=== PATIENT | male | born 1955 | race African-American/Black ===

== ENCOUNTER → 2017-09-02 09:45 | Outpatient (CLI) | payer MEDICARE, OTHER, SELFPAY ==
[2017-09-02 12:38] LABS: Prostate Specific Ag Screen 0.9 ng/mL (0.0-4.0)
== END ==
PROVIDERS: Visit Provider Urology
DX: Z12.5 Encounter for screening for malignant neoplasm of prostate (principal)
CPT/HCPCS: 36415; G0103

== ENCOUNTER → 2017-11-05 08:24 | Outpatient (CLI) | payer MEDICARE, OTHER, SELFPAY ==
[2017-11-05 08:43] LABS: Blood Urea Nitrogen 16 mg/dL (7-18); Creatinine,Serum 1.02 mg/dL (0.70-1.30); Estimated Glomerular Filt Rate 74 ml/min (>60); GFR (African American) 90 ML/MIN (>60)
--- NOTE | 2017-11-05 08:51 | CT_ITS ---
CT abdomen pelvis w con CLINICAL HISTORY: Abdominal pain, patient states that he has a colon mass TECHNIQUE: Axial images obtained with sagittal and coronal reformats. All CT scans at this facility use one or more dose reduction techniques, viz.: automated exposure control; ma/kV adjustment per patient size (including targeted exams where dose is matched to indication; i.e. head) or iterative reconstruction technique. COMPARISON: None PROCEDURE: Oral Contrast:Oral contrast given IV Contrast: 75 mL IV Isovue 370 was injected intravenously. FINDINGS: Lung bases: Clear, there is no pleural fluid ABDOMEN: Liver: No masses or biliary dilatation. Gallbladder: Somewhat contracted but there are no obvious stones Pancreas: Normal in size, pancreatic duct is borderline dilated but there are no inflammatory changes about the pancreas. Spleen: Unremarkable. Adrenals: Unremarkable Kidneys/ureters: No masses. No renal calculi. No hydronephrosis. No perinephric fluid collections. No ureteral dilatation or obvious ureteral calculi. Stomach bowel: The small bowel appears grossly normal. There is large amount stool mixed with oral contrast in the ascending and transverse colon. There is moderate stool in the descending and sigmoid colon. Peritoneum: No abnormal fluid collections. No obvious inflammatory changes. Lymph nodes: No enlarged lymph nodes apparent. Vasculature: No evidence of abdominal aortic aneurysm. No retroperitoneal hemorrhage evident. Bones: Unremarkable appearing bony structures. No lytic or blastic changes. No obvious fractures. PELVIS: Reproductive: Unremarkable, the prostate is mildly enlarged. Bladder: Nondistended. No obvious masses. Appendix: Unremarkable. No distention or periappendiceal phlegmonous change. IMPRESSION: No definite acute abdominal or pelvic pathology identified. No definite colon mass identified
== END ==
PROVIDERS: Family Provider Surgery; PCP Family Medicine; Visit Provider Surgery
DX: R10.9 Unspecified abdominal pain (principal)
CPT/HCPCS: 36415; 74177; 82565; 84520; Q9967

== ENCOUNTER 2017-11-10 08:30 | Inpatient (IN) ==
[2017-11-24 06:59] LABS: Basophils % 0.5 % (0.1-2.0); Eosinophils # 0.1 K/mm3 (0.0-0.4); Eosinophils % 1.3 % (0.1-12.0); Hematocrit 42.5 % (42.0-52.0); Hemoglobin 13.8 g/dL (14.1-18.0); Lymphocytes % 25.8 K/mm3 (10-50); Mean Corpuscular HGB Conc 32.5 g/dL (31.8-35.4); Mean Corpuscular Hemoglobin 28.7 pg (27.0-31.2); Mean Corpuscular Volume 88.1 fl (80-94); Mean Platelet Volume 7.3 fl (7.4-10.4); Monocytes # 0.4 K/mm3 (0.1-1.0); Monocytes % 4.8 % (1.7-9.3); Neutrophils # 5.3 K/mm3 (1.8-7.8); Neutrophils % 67.5 % (37.0-80.0); Platelet Count 219 K/mm3 (142-424); Red Blood Count 4.82 M/mm3 (4.60-6.20); Red Cell Distribution Width 14.2 % (11.5-17.5); White Blood Count 7.8 K/mm3 (4.8-10.8)
--- NOTE | 2017-11-24 07:03 | Progress Note ---
[facility] Anesthesia Checklist - Patient Identification Patient Identification: Arm Band, Verbal (Name & ) - Structural Data Admitted From: Home Planned Operative Procedure/s: R hemicolectomy Consent for Planned Operative Procedure(s) Verified: Yes Verified Documents: Surgical Consent, History and Physical - NPO Status Verified Time NPO: 23:00 - Chart Verification Results Verified: ECG - Additional verifications Anesthesia Reactions: Yes (Propofol causes weakness for days/weeks) - Airway Assessment C-Spine Mobility Assessed: Yes TMJ Mobility Assessed: Yes Dentition: Good Dentition (Micrognathia) - Neurological Assessment Level of Consciousness: Awake Hx Seizures: No Numbness or tingling in extremities: No - Anesthesia Plan Anesthesia Risk discussed: Yes Anesthesia Plan: Verified ASA Class: III Anesthesia Type: General [facility] Anesthesia HX I have reviewed the patient's past medical history: Yes Medical History: Reports:: Cancer (colon, sarcoidosis of spine, lymph nodes/lung ), Gastroesophageal Reflux Disease(GERD), Hypertension Denies:: Diabetes Mellitus Type 1, Diabetes Mellitus Type 2, Internal Pacemaker, Lung Disease, MRSA, Seizures Other Medical History: Reports: Arthritis, Chemotherapy. Denies: Blood Transfusion Reaction Laterality Cases: Right: Arthroscopy Shoulder Other Surgeries: Yes: Cancer Surgery, Colonoscopy, EGD, Plastic Surgery, Other. No: Pacemaker Amputation: No Fractures: No *Family Hx:: Cancer, Hypertension, Asthma, Heart Attack
[2017-11-24 07:11] LABS: Albumin Level 3.9 gm/dL (3.4-5.0); Albumin/Globulin Ratio 1.1 (1.1-1.8); Anion Gap 19.7 mEq/L (5-15); Bilirubin,Total 0.7 mg/dL (0.2-1.0); Calcium 8.8 mg/dL (8.5-10.1); Globulin 3.6 gm/dl (1.3-3.2); Potassium 3.7 mmoL/L (3.5-5.1); Total Protein,Serum 7.5 gm/dL (6.4-8.2)
--- NOTE | 2017-11-24 10:09 | Operative Note ---
Date of procedure: 11/24/17 Pre-op Diagnosis:: Right colon mass Post-op Diagnosis:: Same Procedure performed:: Right hemicolectomy with ileocolic anastomosis Surgeon:: Demetrio Amor MD PRESSER HAND:: Dmitri Treviño Anesthesia: GETAlis Estimated blood loss (mL): 50 Clinical Note:: Patient is a well-established patient of mine. I had done initial screening colonoscopy on him in April 2015 at which time he had numerous precancerous polyps including a tubulovillous adenoma with focal high-grade dysplasia within the cecum. I had done a follow-up colonoscopy 3 months later in July 2015 at which time he had multiple tubular adenomas. Colonoscopy 6 months later in February 2016 revealed a tubulovillous adenoma within the cecum and a tubular adenoma. Colonoscopy done in September 2016 revealed only hyperplastic polyps. It was recommended he undergo follow-up colonoscopy in 1 year. He underwent recent colonoscopy and had a tubular adenoma which was quite small within the cecum. However, in the ascending colon there was a rather large flat sessile irregular polyp which was unable to be removed with multiple techniques using snare. It was felt that this would need resection. The area was marked with a clip and with Christianne ink. Patient's only complaint is Interestingly lack of energy. Of note, large biopsies and sampling of this large flat sessile lesion in the ascending colon returned as tubular adenoma without dysplasia. When he followed up after his colonoscopy I discussed the findings with him. I had discussed the options with the patient and he elected to proceed with colon resection. Operative findings:: He had no palpable mass or no obvious metastatic disease. Christianne ink tattooing of the colon was visualized from marking during colonoscopy. Operative note:: Consent was obtained and patient was taken to the operating room. Please note that he had been given mechanical and antibiotic bowel preparation prior to surgery. He was given intravenous Invanz. In the operating room general anesthesia was induced. Fuller catheter was placed for bladder decompression. He was prepped and draped. Midline incision was made. Dissection was carried down through subcutaneous tissues and fascia using electrocautery. Peritoneal cavity was entered and exposure was achieved. Inspection of the right colon revealed clearly visualized in the aortic marking the area in the mid descending colon. The colon was mobilized by dividing the peritoneum laterally along the white line of Toldt. Colon was mobilized on its mesentery. The colon was divided at the terminal ileum with a ZAHEER-75 stapling device. Proximal transverse colon was divided with a ZAHEER-75 type stapling device. The colonic mesentery was divided with the Enseal device however the ileocolic and right colic vascular bundles were doubly ligated with 0 Surgilon ties. Decision was made to perform a couple additional centimeters resection of the transverse colon due to the location in close proximity to the staple line of the right colic vessels. Vessels were divided and ligated doubly with Surgilon ties. The colon was divided with the ZAHEER-75 stapling device. A [id number], functional end-to-end anastomosis was created with the ZAHEER-75 stapling device. The enterotomy defects were closed with a TL 90 stapling device. At this time inspection of the anastomosis revealed somewhat twisting of the ileum. It is felt that this may result in obstruction. Decision was made to perform a limited resection of the staple anastomosis and re-create the anastomosis. Colon and ileum were divided with a ZAHEER-75 stapling device. Once again a side- to-side, functional and an anastomosis was created with a ZAHEER-75 stapling device. The enterotomy was closed with TL 90 stapling device. This anastomosis was much more widely patent and in a better anatomic position without twisting. Several 3 oh Surgilon sutures were placed at the staple line angle and confluence of the staple lines as seromuscular sutures. The mesenteric defect was closed with running 2-0 Vicryl. Enteric contents were returned to the normal anatomic position. Peritoneal cavity was irrigated and aspirated until clear. Nasogastric tube was palpated and manipulated into good position in the stomach. Please note that liver was palpated and there was no evidence of any metastatic disease. The fascia was closed with running #1 PDS 2. Subcutaneous tissues were irrigated. Skin was closed with juan luis. Clean dry sterile dressing was applied. Condition: stable Disposition: PACU Specimens:: Right colon Extended distal margin Complications:: None immediately apparent
--- NOTE | 2017-11-24 10:22 | Progress Note ---
[facility] Anesthesia Record Part I Intake, IV Amount: 1,800 Estimated blood loss (mL): 20 Urine output (mL): 50 Blood Products used (#): none Blood Pressure: 186/87 SaO2: 97 Pulse Rate: 61 Respiratory Rate: 18 Temperature: 98.0 F Patient is:: Drowsy, Stable Stable to PACU at:: 10:17
--- NOTE | 2017-11-24 10:23 | Progress Note ---
[facility] Anesthesia Record Part II Discharge Time: 10:47 Destination: Medical Surgical Department PACU nurse assessment reviewed?: Yes Patient Condition:: Good Anesthesia Complications:: None
--- NOTE | 2017-11-24 11:54 | Pharmacy Consult Notes ---
[facility] Pharmacy VTE Monitoring - Patient Demographics Admission date: 11/24/17 Report Date: 11/24/17 Time: 11:54 Allergies/Adverse Reactions: Patient Allergies codeine [CODEINE] Allergy (Mild, Verified 11/12/17 10:13) NA-NAUSEA/VOMITING Sulfa (Sulfonamide Antibiotics) [SULFA (SULFONAMIDE ANTIBIOTICS)] Allergy (Mild , Verified 11/12/17 10:13) NA-NAUSEA/VOMITING duloxetine Allergy (Unknown, Verified 11/12/17 11:03) gabapentin Allergy (Unknown, Verified 11/12/17 11:03) influenza virus vaccine qs [id number] (36 mos +) [From Single Use EZ Flu] Allergy (Unknown, Verified 11/12/17 11:03) pregabalin [From Lyrica] Allergy (Unknown, Verified 11/12/17 11:03) Height: 1.75 m Weight: 66.706 kg - VTE Risk Labs: VTE Related Lab Results Hgb 13.8 g/dL (14.1-18.0) L 11/24/17 06:35 Hct 42.5 % (42.0-52.0) 11/24/17 06:35 Plt Count 219 K/mm3 (142-424) 11/24/17 06:35 BUN 19 mg/dL (7-18) H 11/24/17 06:35 Creatinine 1.13 mg/dL (0.70-1.30) 11/24/17 06:35 Estimated Creat Clear 65 mL/min (0-300) 11/24/17 06:35 - Prophylaxis VTE Prophylaxis Ordered?: Yes Types of VTE Prophylaxis: IPCS Knee High Location of Applied Device: Bilateral Lower Extremeties - VTE Diagnosis Confirmed Treatment or plan recommended: Continue Current Treatment
[2017-11-25 06:03] LABS: Anion Gap 8.7 mEq/L (5-15); Calcium 8.6 mg/dL (8.5-10.1); Potassium 3.7 mmoL/L (3.5-5.1)
[2017-11-25 06:04] LABS: Basophils % 0.2 % (0.1-2.0); Eosinophils % 0.1 % (0.1-12.0); Hematocrit 36.2 % (42.0-52.0); Lymphocytes # 2.3 K/mm3 (0.7-4.5); Lymphocytes % 18.2 K/mm3 (10-50); Mean Corpuscular HGB Conc 32.7 g/dL (31.8-35.4); Mean Corpuscular Hemoglobin 28.8 pg (27.0-31.2); Mean Corpuscular Volume 88.2 fl (80-94); Mean Platelet Volume 6.9 fl (7.4-10.4); Monocytes # 0.9 K/mm3 (0.1-1.0); Monocytes % 6.9 % (1.7-9.3); Neutrophils # 9.5 K/mm3 (1.8-7.8); Neutrophils % 74.6 % (37.0-80.0); Platelet Count 185 K/mm3 (142-424); Red Cell Distribution Width 14.1 % (11.5-17.5); White Blood Count 12.8 K/mm3 (4.8-10.8)
--- NOTE | 2017-11-25 07:03 | Progress Note ---
Subjective Patient reports: no new complaints, still having pain Exam Vital signs and Labs for Last 24 Hours: Temp Pulse Resp BP Pulse Ox 98.7 F 62 16 159/90 97 11/25/17 04:00 11/25/17 06:00 11/25/17 06:00 11/25/17 06:00 11/25/17 06:00 Laboratory Results - last 24 hr 11/24/17 06:35: WBC 7.8, RBC 4.82, Hgb 13.8 L, Hct 42.5, MCV 88.1, MCH 28.7, MCHC 32.5, RDW 14.2, Plt Count 219, MPV 7.3 L, Neut % (Auto) 67.5, Lymph % (Auto ) 25.8, [place] % (Auto) 4.8, Eos % (Auto) 1.3, Baso % (Auto) 0.5, Neut # (Auto) 5.3, Lymph # (Auto) 2.0, [place] # (Auto) 0.4, Eos # (Auto) 0.1, Baso # (Auto) 0.0 11/24/17 06:35: Sodium 142, Potassium 3.7, Chloride 99, Carbon Dioxide 27, Anion Gap 19.7 H, BUN 19 H, Creatinine 1.13, Estimated Creat Clear 65, Estimated GFR 66, Est GFR ( Amer) 80, Glucose 103, Calcium 8.8, Total Bilirubin 0.7, AST 11 L, ALT 17, Alkaline Phosphatase 57, Total Protein 7.5, Albumin 3.9, Globulin 3.6 H, Albumin/Globulin Ratio 1.1 11/24/17 07:30: Urine Color Yellow, Urine Appearance Clear, Urine pH 6.0, Ur Specific [place] >= 1.030, Urine Protein Negative, Urine Glucose (UA) Negative, Urine Ketones 1+, Urine Blood Negative, Urine Nitrate Negative, Urine Bilirubin Negative, Urine Urobilinogen 0.2, Ur Leukocyte Esterase Negative, Urine RBC None , Urine WBC Occasional, Ur Squamous Epith Cells None, Urine Bacteria 2+ A 11/25/17 05:30: WBC 12.8 H D, RBC 4.10 L, Hgb 12.0 L D, Hct 36.2 L, MCV 88.2, MCH 28.8, MCHC 32.7, RDW 14.1, Plt Count 185, MPV 6.9 L, Neut % (Auto) 74.6, Lymph % (Auto) 18.2, [place] % (Auto) 6.9, Eos % (Auto) 0.1, Baso % (Auto) 0.2, Neut # (Auto) 9.5 H, Lymph # (Auto) 2.3, [place] # (Auto) 0.9, Eos # (Auto) 0.0, Baso # (Auto) 0.0 11/25/17 05:30: Sodium 137, Potassium 3.7, Chloride 102, Carbon Dioxide 30, Anion Gap 8.7, BUN 10 D, Creatinine 0.99, Estimated Creat Clear 72, Estimated GFR 77, Est GFR ( Amer) 93, Glucose 105, Calcium 8.6 I & O for Last 24 hours: Intake & Output 11/22/17 11/23/17 11/24/17 11/25/17 11:59 11:59 11:59 11:59 Intake Total 1800 / 1800 2245 / 2245 Output Total 3150 / 3150 Balance 1800 / 1800 -905 / -905 Weight 147 lb 1 oz 148 lb 2 oz - Constitutional no acute distress - *Routine Respiratory Exam Absent: respiratory distress - *Routine Cardiovascular Exam Present: RRR - *Routine Abdominal Exam Present: soft Comments: dressing intact no cellulitis Progress Note: A&P (1) 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
[2017-11-26 06:19] LABS: Basophils % 0.3 % (0.1-2.0); Eosinophils # 0.1 K/mm3 (0.0-0.4); Eosinophils % 0.5 % (0.1-12.0); Hematocrit 34.6 % (42.0-52.0); Hemoglobin 11.4 g/dL (14.1-18.0); Lymphocytes # 1.9 K/mm3 (0.7-4.5); Lymphocytes % 16.8 K/mm3 (10-50); Mean Corpuscular Hemoglobin 28.7 pg (27.0-31.2); Mean Corpuscular Volume 86.9 fl (80-94); Mean Platelet Volume 7.2 fl (7.4-10.4); Monocytes # 0.7 K/mm3 (0.1-1.0); Monocytes % 5.7 % (1.7-9.3); Neutrophils # 8.7 K/mm3 (1.8-7.8); Neutrophils % 76.8 % (37.0-80.0); Platelet Count 185 K/mm3 (142-424); Red Blood Count 3.98 M/mm3 (4.60-6.20); Red Cell Distribution Width 13.9 % (11.5-17.5); White Blood Count 11.4 K/mm3 (4.8-10.8)
[2017-11-26 06:33] LABS: Anion Gap 8.7 mEq/L (5-15); Calcium 8.7 mg/dL (8.5-10.1); Potassium 3.7 mmoL/L (3.5-5.1)
--- NOTE | 2017-11-26 07:46 | Progress Note ---
Subjective Patient reports: feels better Narrative: Patient has been ambulating multiple times. He has had some nausea. NG tube still in place. No flatus. He did require increasing the [employer] yesterday due to pain. Exam Vital signs and Labs for Last 24 Hours: Temp Pulse Resp BP Pulse Ox 98.0 F 75 18 155/83 98 11/25/17 20:00 11/26/17 06:00 11/25/17 20:00 11/26/17 06:00 11/26/17 06:00 Laboratory Results - last 24 hr 11/26/17 05:40: WBC 11.4 H, RBC 3.98 L, Hgb 11.4 L, Hct 34.6 L, MCV 86.9, MCH 28.7, MCHC 33.0, RDW 13.9, Plt Count 185, MPV 7.2 L, Neut % (Auto) 76.8, Lymph % (Auto) 16.8, [place] % (Auto) 5.7, Eos % (Auto) 0.5, Baso % (Auto) 0.3, Neut # ( Auto) 8.7 H, Lymph # (Auto) 1.9, [place] # (Auto) 0.7, Eos # (Auto) 0.1, Baso # ( Auto) 0.0 11/26/17 05:40: Sodium 138, Potassium 3.7, Chloride 101, Carbon Dioxide 32, Anion Gap 8.7, BUN 10, Creatinine 0.93, Estimated Creat Clear 75, Estimated GFR 82, Est GFR ( Amer) 100, Glucose 95, Calcium 8.7 I & O for Last 24 hours: Intake & Output 11/23/17 11/24/17 11/25/17 11/26/17 11:59 11:59 11:59 11:59 Intake Total 1800 / 1800 2245 / 2245 3220 / 3220 Output Total 3750 / 3750 1462 / 1462 Balance 1800 / 1800 -1505 / -1505 1758 / 1758 Weight 147 lb 1 oz 148 lb 2 oz 153 lb Microbiology Reports for the Last 24 Hours: Microbiology 11/24/17 07:30 Urine,Catheterized Urine Culture - Preliminary NO GROWTH AFTER 24 HOURS - *Routine Abdominal Exam Present: soft Comments: No appreciable bowel sounds. 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 Encourage ambulation.
--- NOTE | 2017-11-27 09:07 | Progress Note ---
Subjective Patient reports: no new complaints Narrative: Patient is doing quite well. Has been ambulating extensively in the hallways. Has had limited nausea but no vomiting. Has had some belching. Denies passage of flatus. Exam Vital signs and Labs for Last 24 Hours: Temp Pulse Resp BP Pulse Ox 98.5 F 73 20 169/90 99 11/27/17 08:00 11/27/17 08:00 11/27/17 08:00 11/27/17 08:00 11/27/17 08:00 I & O for Last 24 hours: Intake & Output 11/24/17 11/25/17 11/26/17 11/27/17 11:59 11:59 11:59 11:59 Intake Total 1800 / 1800 2245 / 2245 3220 / 3220 1431 / 1431 Output Total 3750 / 3750 1462 / 1462 1525 / 1525 Balance 1800 / 1800 -1505 / -1505 1758 / 1758 -94 / -94 Weight 147 lb 1 oz 148 lb 2 oz 153 lb 153 lb 0.013 oz Microbiology Reports for the Last 24 Hours: Microbiology 11/24/17 07:30 Urine,Catheterized Urine Culture - Final NO GROWTH AFTER 48 HOURS - *Routine Abdominal Exam Comments: Dressing is dry. Abdomen is soft. No appreciable bowel sounds. 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 Once he has passage of flatus and return of bowel function will initiate diet.
--- NOTE | 2017-11-28 09:40 | Progress Note ---
Subjective Narrative: Patient is postoperative day #4 from right hemicolectomy. When asked how the patient is doing he states "I am not." He describes significant abdominal bloating and "gas pain" since awakening this morning approximately 6 AM. He states that he did pass some gas. Exam Vital signs and Labs for Last 24 Hours: Temp Pulse Resp BP Pulse Ox 98.4 F 77 20 165/107 96 11/28/17 07:51 11/28/17 08:00 11/28/17 07:51 11/28/17 07:51 11/28/17 08:00 I & O for Last 24 hours: Intake & Output 11/25/17 11/26/17 11/27/17 11/28/17 11:59 11:59 11:59 11:59 Intake Total 2245 / 2245 3220 / 3220 1431 / 1431 4713 / 4713 Output Total 3750 / 3750 1462 / 1462 1525 / 1525 1775 / 1775 Balance -1505 / -1505 1758 / 1758 -94 / -94 2938 / 2938 Weight 148 lb 2 oz 153 lb 153 lb 0.013 oz - Constitutional Comments: Patient is uncomfortable. - *Routine Abdominal Exam Present: distended Comments: No appreciable bowel sounds. 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 I will give simethicone. Check an acute abdominal series to check bowel gas pattern. Likely will need nasogastric tube replaced.
[2017-11-28 10:23] LABS: Basophils % 0.2 % (0.1-2.0); Eosinophils # 0.2 K/mm3 (0.0-0.4); Eosinophils % 1.5 % (0.1-12.0); Hematocrit 40.4 % (42.0-52.0); Hemoglobin 13.6 g/dL (14.1-18.0); Lymphocytes # 1.3 K/mm3 (0.7-4.5); Lymphocytes % 9.7 K/mm3 (10-50); Mean Corpuscular HGB Conc 33.7 g/dL (31.8-35.4); Mean Corpuscular Hemoglobin 29.1 pg (27.0-31.2); Mean Corpuscular Volume 86.5 fl (80-94); Mean Platelet Volume 7.3 fl (7.4-10.4); Monocytes # 0.6 K/mm3 (0.1-1.0); Monocytes % 4.7 % (1.7-9.3); Neutrophils # 11.2 K/mm3 (1.8-7.8); Neutrophils % 83.9 % (37.0-80.0); Platelet Count 282 K/mm3 (142-424); Red Blood Count 4.67 M/mm3 (4.60-6.20); Red Cell Distribution Width 13.7 % (11.5-17.5); White Blood Count 13.3 K/mm3 (4.8-10.8)
[2017-11-28 10:34] LABS: Anion Gap 13.5 mEq/L (5-15); Calcium 9.2 mg/dL (8.5-10.1); Potassium 3.5 mmoL/L (3.5-5.1)
[2017-11-29 06:21] LABS: Basophils % 0.4 % (0.1-2.0); Eosinophils # 0.2 K/mm3 (0.0-0.4); Eosinophils % 2.6 % (0.1-12.0); Hematocrit 36.4 % (42.0-52.0); Lymphocytes # 1.5 K/mm3 (0.7-4.5); Lymphocytes % 17.7 K/mm3 (10-50); Mean Corpuscular HGB Conc 32.8 g/dL (31.8-35.4); Mean Corpuscular Hemoglobin 28.7 pg (27.0-31.2); Mean Corpuscular Volume 87.8 fl (80-94); Mean Platelet Volume 7.2 fl (7.4-10.4); Monocytes # 0.6 K/mm3 (0.1-1.0); Monocytes % 6.3 % (1.7-9.3); Neutrophils # 6.3 K/mm3 (1.8-7.8); Neutrophils % 72.9 % (37.0-80.0); Platelet Count 256 K/mm3 (142-424); Red Blood Count 4.15 M/mm3 (4.60-6.20); Red Cell Distribution Width 13.8 % (11.5-17.5); White Blood Count 8.7 K/mm3 (4.8-10.8)
[2017-11-29 06:28] LABS: Anion Gap 9.8 mEq/L (5-15); Calcium 8.6 mg/dL (8.5-10.1); Potassium 3.8 mmoL/L (3.5-5.1)
--- NOTE | 2017-11-29 08:14 | Progress Note ---
Subjective Patient reports: feels better Narrative: Patient feels much better than yesterday. Some relief with nasogastric tube placement. He had a total of 900 mL out. He actually has had some liquid stool. X-rays were consistent with diffuse ileus. Exam Vital signs and Labs for Last 24 Hours: Temp Pulse Resp BP Pulse Ox 98.1 F 68 16 148/86 96 11/29/17 07:43 11/29/17 07:43 11/29/17 07:43 11/29/17 07:43 11/29/17 07:43 Laboratory Results - last 24 hr 11/28/17 10:14: WBC 13.3 H, RBC 4.67, Hgb 13.6 L, Hct 40.4 L, MCV 86.5, MCH 29.1 , MCHC 33.7, RDW 13.7, Plt Count 282 D, MPV 7.3 L, Neut % (Auto) 83.9 H, Lymph % (Auto) 9.7 L, [place] % (Auto) 4.7, Eos % (Auto) 1.5, Baso % (Auto) 0.2, Neut # ( Auto) 11.2 H, Lymph # (Auto) 1.3, [place] # (Auto) 0.6, Eos # (Auto) 0.2, Baso # ( Auto) 0.0 11/28/17 10:14: Sodium 136, Potassium 3.5, Chloride 97 L, Carbon Dioxide 29, Anion Gap 13.5, BUN 15 D, Creatinine 1.01, Estimated Creat Clear 74, Estimated GFR 75, Est GFR ( Amer) 91, Glucose 128 H, Calcium 9.2 11/29/17 05:54: WBC 8.7 D, RBC 4.15 L, Hct 36.4 L, MCV 87.8, MCH 28.7, MCHC 32.8, RDW 13.8, Plt Count 256, MPV 7.2 L, Neut % (Auto) 72.9, Lymph % (Auto) 17.7, [place] % (Auto) 6.3, Eos % (Auto) 2.6, Baso % (Auto) 0.4, Neut # (Auto) 6.3 , Lymph # (Auto) 1.5, [place] # (Auto) 0.6, Eos # (Auto) 0.2, Baso # (Auto) 0.0 11/29/17 05:54: Sodium 139, Potassium 3.8, Chloride 102, Carbon Dioxide 31, Anion Gap 9.8, BUN 23 H D, Creatinine 1.18, Estimated Creat Clear 64, Estimated GFR 63, Est GFR ( Amer) 76, Glucose 106, Calcium 8.6 I & O for Last 24 hours: Intake & Output 11/26/17 11/27/17 11/28/17 11/29/17 11:59 11:59 11:59 11:59 Intake Total 3220 / 3220 1431 / 1431 4713 / 4713 2898 / 2898 Output Total 1462 / 1462 1525 / 1525 1775 / 1775 900 / 900 Balance 1758 / 1758 -94 / -94 2938 / 2938 1997 / 1997 Weight 153 lb 153 lb 0.013 oz - *Routine Abdominal Exam Present: soft Progress Note: A&P (1) 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 If continues to pass liquid stool may be able to remove tomorrow and initiate liquid diet.
[2017-11-29 15:23] LABS: Hemoglobin 11.9 g/dL (14.1-18.0)
--- NOTE | 2017-11-30 06:46 | Progress Note ---
Subjective Narrative: Pt sleeping. Couple of loose bowel movements yesterday. Only 150 out NG over last 24 hours. Exam Vital signs and Labs for Last 24 Hours: Temp Pulse Resp BP Pulse Ox 99.5 F 74 18 149/86 98 11/30/17 06:00 11/30/17 06:00 11/30/17 06:00 11/30/17 06:00 11/30/17 06:00 Laboratory Results - last 24 hr 11/29/17 05:54: Hgb 11.9 L D 11/29/17 17:45: Stool Occult Blood Negative 11/29/17 17:45: Stl Aeromonas (PCR) Not detected, Stl C. cayetanensis PCR Not detected, Stool Rotavirus (PCR) Not detected, Stl Adenov F 40/41 PCR Not detected, Stool Astrovirus (PCR) Not detected, Stool Campylobacter PCR Not detected, Stl C.difficile Tox PCR Not detected, Stool Cryptosporidium PCR Not detected, Stl E.coli Shiga Tox PCR Not detected, Stool E coli O157 PCR Not detected, Stl Enterotoxigenic E PCR Not detected, Stool EPEC (PCR) Detected A, Stool EAEC (PCR) Not detected, Stl E. histolytica PCR Not detected, Stool Giardia Lamblia PCR Not detected, Stool Salmonella PCR Not detected, Stool Sapovirus (PCR) Not detected, Stl P. 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 If improving bowel gas pattern may be able to DC NG tube.
--- NOTE | 2017-11-30 12:28 | Progress Note ---
Subjective Patient reports: no new complaints, flatus, diarrhea Exam Vital signs and Labs for Last 24 Hours: Temp Pulse Resp BP Pulse Ox 98.0 F 68 16 162/90 98 11/30/17 10:00 11/30/17 10:00 11/30/17 10:00 11/30/17 10:00 11/30/17 10:00 Laboratory Results - last 24 hr 11/29/17 05:54: Hgb 11.9 L D 11/29/17 17:45: Stool Occult Blood Negative 11/29/17 17:45: Stl Aeromonas (PCR) Not detected, Stl C. cayetanensis PCR Not detected, Stool Rotavirus (PCR) Not detected, Stl Adenov F 40/41 PCR Not detected, Stool Astrovirus (PCR) Not detected, Stool Campylobacter PCR Not detected, Stl C.difficile Tox PCR Not detected, Stool Cryptosporidium PCR Not detected, Stl E.coli Shiga Tox PCR Not detected, Stool E coli O157 PCR Not detected, Stl Enterotoxigenic E PCR Not detected, Stool EPEC (PCR) Detected A, Stool EAEC (PCR) Not detected, Stl E. histolytica PCR Not detected, Stool Giardia Lamblia PCR Not detected, Stool Salmonella PCR Not detected, Stool Sapovirus (PCR) Not detected, Stl P. 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 Apparently according to protocol he had a diarrhea stool PCR panel sent which revealed enteropathogenic E. coli. He has had minimal out the NG tube today. However, acute abdominal series reveals significant persistent small bowel gas dilatation with some air-fluid levels. At this point we will keep the nasogastric tube for presumed ileus. The findings on the PCR panel may be incidental and his liquid stools are likely due to resolving ileus but will start levofloxacin and metronidazole given the results.
[2017-12-01 06:36] LABS: Anion Gap 10.5 mEq/L (5-15); Calcium 8.2 mg/dL (8.5-10.1); Potassium 3.5 mmoL/L (3.5-5.1)
[2017-12-01 06:43] LABS: Basophils % 0.3 % (0.1-2.0); Eosinophils # 0.1 K/mm3 (0.0-0.4); Eosinophils % 1.6 % (0.1-12.0); Hematocrit 30.1 % (42.0-52.0); Hemoglobin 9.8 g/dL (14.1-18.0); Lymphocytes # 1.5 K/mm3 (0.7-4.5); Lymphocytes % 18.3 K/mm3 (10-50); Mean Corpuscular HGB Conc 32.6 g/dL (31.8-35.4); Mean Corpuscular Hemoglobin 28.7 pg (27.0-31.2); Mean Corpuscular Volume 87.9 fl (80-94); Mean Platelet Volume 7.3 fl (7.4-10.4); Monocytes # 0.6 K/mm3 (0.1-1.0); Monocytes % 6.5 % (1.7-9.3); Neutrophils # 6.2 K/mm3 (1.8-7.8); Neutrophils % 73.2 % (37.0-80.0); Platelet Count 259 K/mm3 (142-424); Red Blood Count 3.42 M/mm3 (4.60-6.20); Red Cell Distribution Width 13.9 % (11.5-17.5); White Blood Count 8.4 K/mm3 (4.8-10.8)
--- NOTE | 2017-12-01 06:48 | Progress Note ---
Subjective Patient reports: feels better Narrative: Patient states that he feels good this morning. Exam Vital signs and Labs for Last 24 Hours: Temp Pulse Resp BP Pulse Ox 98.4 F 73 18 161/83 98 12/01/17 04:00 12/01/17 04:00 12/01/17 04:00 12/01/17 04:00 12/01/17 04:00 Laboratory Results - last 24 hr 12/01/17 06:13: Sodium 137, Potassium 3.5, Chloride 101, Carbon Dioxide 29, Anion Gap 10.5, BUN 18, Creatinine 0.97, Estimated Creat Clear 75, Estimated GFR 78, Est GFR ( Amer) 95 D, Glucose 94, Calcium 8.2 L I & O for Last 24 hours: Intake & Output 11/28/17 11/29/17 11/30/17 12/01/17 11:59 11:59 11:59 11:59 Intake Total 4713 / 4713 2898 / 2898 3190 / 3190 2307 / 2307 Output Total 1775 / 1775 900 / 900 650 / 650 1575 / 1575 Balance 2938 / 2938 1997 / 1997 2540 / 2540 732 / 732 - *Routine Abdominal Exam Present: soft Progress Note: A&P (1) 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 If improving will clamp NG and if tolerated remove NG later.
--- NOTE | 2017-12-02 08:52 | Progress Note ---
Subjective Patient reports: no new complaints Narrative: Still passing flatus and having bowel movements. 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 When reattached to suction no output. Will DC NG tube. Start clears.
[2017-12-03 07:24] LABS: Basophils % 0.4 % (0.1-2.0); Eosinophils # 0.2 K/mm3 (0.0-0.4); Eosinophils % 2.6 % (0.1-12.0); Hematocrit 31.2 % (42.0-52.0); Hemoglobin 10.4 g/dL (14.1-18.0); Lymphocytes # 1.8 K/mm3 (0.7-4.5); Lymphocytes % 20.8 K/mm3 (10-50); Mean Corpuscular HGB Conc 33.5 g/dL (31.8-35.4); Mean Corpuscular Hemoglobin 28.9 pg (27.0-31.2); Mean Corpuscular Volume 86.4 fl (80-94); Mean Platelet Volume 7.3 fl (7.4-10.4); Monocytes # 0.5 K/mm3 (0.1-1.0); Monocytes % 6.3 % (1.7-9.3); Neutrophils # 5.9 K/mm3 (1.8-7.8); Neutrophils % 69.9 % (37.0-80.0); Platelet Count 342 K/mm3 (142-424); Red Blood Count 3.61 M/mm3 (4.60-6.20); Red Cell Distribution Width 13.9 % (11.5-17.5); White Blood Count 8.4 K/mm3 (4.8-10.8)
--- NOTE | 2017-12-03 08:01 | Progress Note ---
Subjective Patient reports: feels better, flatus, bowel movement Narrative: Tolerating copious amounts of liquids. Exam Vital signs and Labs for Last 24 Hours: Temp Pulse Resp BP Pulse Ox 98.1 F 65 18 139/77 100 12/03/17 04:00 12/03/17 04:00 12/03/17 04:00 12/03/17 04:00 12/03/17 04:00 Laboratory Results - last 24 hr 12/03/17 06:18: WBC 8.4, RBC 3.61 L, Hgb 10.4 L, Hct 31.2 L, MCV 86.4, MCH 28.9 , MCHC 33.5, RDW 13.9, Plt Count 342 D, MPV 7.3 L, Neut % (Auto) 69.9, Lymph % (Auto) 20.8, [place] % (Auto) 6.3, Eos % (Auto) 2.6, Baso % (Auto) 0.4, Neut # ( Auto) 5.9, Lymph # (Auto) 1.8, Clinch # (Auto) 0.5, Eos # (Auto) 0.2, Baso # (Auto ) 0.0 I & O for Last 24 hours: Intake & Output 11/30/17 12/01/17 12/02/17 12/03/17 11:59 11:59 11:59 11:59 Intake Total 3190 / 3190 2507 / 2507 3491 / 3491 1821 / 1821 Output Total 650 / 650 1775 / 1775 1710 / 1710 600 / 600 Balance 2540 / 2540 732 / 732 1781 / 1781 1221 / 1221 Progress Note: A&P (1) 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 Possible discharge home later today.
[2017-12-03 08:12] LABS: Anion Gap 11.2 mEq/L (5-15); Calcium 8.2 mg/dL (8.5-10.1); Potassium 3.2 mmoL/L (3.5-5.1)
--- NOTE | 2017-12-03 09:54 | Progress Note ---
Internal Medicine - PN: Subj *Date: 12/03/17 *Time: 09:54 Exam Vital signs and Labs for Last 24 Hours: Temp Pulse Resp BP Pulse Ox 98.2 F 61 18 152/75 99 12/03/17 08:00 12/03/17 08:00 12/03/17 08:00 12/03/17 08:00 12/03/17 08:00 Laboratory Results - last 24 hr 12/03/17 06:18: WBC 8.4, RBC 3.61 L, Hgb 10.4 L, Hct 31.2 L, MCV 86.4, MCH 28.9 , MCHC 33.5, RDW 13.9, Plt Count 342 D, MPV 7.3 L, Neut % (Auto) 69.9, Lymph % (Auto) 20.8, [place] % (Auto) 6.3, Eos % (Auto) 2.6, Baso % (Auto) 0.4, Neut # ( Auto) 5.9, Lymph # (Auto) 1.8, [place] # (Auto) 0.5, Eos # (Auto) 0.2, Baso # (Auto ) 0.0 12/03/17 06:18: Sodium 136, Potassium 3.2 L, Chloride 100, Carbon Dioxide 28, Anion Gap 11.2, BUN 8 D, Creatinine 0.99, Estimated Creat Clear 75, Estimated GFR 77, Est GFR ( Amer) 93, Glucose 126 H, Calcium 8.2 L I & O for Last 24 hours: Intake & Output 11/30/17 12/01/17 12/02/17 12/03/17 23:59 23:59 23:59 23:59 Intake Total 3053 / 3053 1287 / 1287 3871 / 3871 1621 / 1621 Output Total 1725 / 1725 1400 / 1400 1310 / 1310 Balance 1328 / 1328 -113 / -113 2561 / 2561 1621 / 1621 Assessment and Plan (1) 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
--- NOTE | 2017-12-03 12:01 | Progress Note ---
Subjective Patient reports: feels better Narrative: Tolerating full liquids. Exam Vital signs and Labs for Last 24 Hours: Temp Pulse Resp BP Pulse Ox 98.2 F 61 18 152/75 99 12/03/17 08:00 12/03/17 08:00 12/03/17 08:00 12/03/17 08:00 12/03/17 08:00 Laboratory Results - last 24 hr 12/03/17 06:18: WBC 8.4, RBC 3.61 L, Hgb 10.4 L, Hct 31.2 L, MCV 86.4, MCH 28.9 , MCHC 33.5, RDW 13.9, Plt Count 342 D, MPV 7.3 L, Neut % (Auto) 69.9, Lymph % (Auto) 20.8, [place] % (Auto) 6.3, Eos % (Auto) 2.6, Baso % (Auto) 0.4, Neut # ( Auto) 5.9, Lymph # (Auto) 1.8, [place] # (Auto) 0.5, Eos # (Auto) 0.2, Baso # (Auto ) 0.0 12/03/17 06:18: Sodium 136, Potassium 3.2 L, Chloride 100, Carbon Dioxide 28, Anion Gap 11.2, BUN 8 D, Creatinine 0.99, Estimated Creat Clear 75, Estimated GFR 77, Est GFR ( Amer) 93, Glucose 126 H, Calcium 8.2 L I & O for Last 24 hours: Intake & Output 11/30/17 12/01/17 12/02/17 12/03/17 11:59 11:59 11:59 11:59 Intake Total 3190 / 3190 2507 / 2507 3491 / 3491 2301 / 2301 Output Total 650 / 650 1775 / 1775 1710 / 1710 600 / 600 Balance 2540 / 2540 732 / 732 1781 / 1781 1701 / 1701 - *Routine Abdominal Exam Present: soft Progress Note: A&P (1) 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 Probable discharge tomorrow morning.
[2017-12-04 08:17] VITALS: BP 140/77
== END 2017-12-04 12:05 | disposition home or self-care (01) ==
LOC: 2ND 11-24 06:07 → EDSTATUS 11-24 07:30 → 2ND 11-24 11:12
PROVIDERS: ADMIT Surgery; ATTEND Surgery

== ENCOUNTER → 2018-09-22 11:45 | Outpatient (CLI) | payer MEDICARE, OTHER, SELFPAY ==
[2018-09-22 13:37] LABS: Prostate Specific Ag Screen 0.7 ng/mL (0.0-4.0)
== END ==
PROVIDERS: Visit Provider Urology
DX: Z12.5 Encounter for screening for malignant neoplasm of prostate (principal)
CPT/HCPCS: 36415; G0103

== ENCOUNTER → 2019-12-04 14:05 | Outpatient (CLI) | payer MEDICARE, OTHER, SELFPAY ==
[2019-12-04 15:51] LABS: Prostate Specific Ag Screen 0.9 ng/ml (0.0-4.0)
== END ==
PROVIDERS: Visit Provider Urology
DX: Z12.5 Encounter for screening for malignant neoplasm of prostate (principal)
CPT/HCPCS: 36415; G0103

== ENCOUNTER → 2020-01-29 09:49 | Outpatient (CLI) | payer MEDICARE, OTHER, SELFPAY ==
[2020-01-29 12:09] LABS: Coronavirus 19 IgG Antibody Negative (Negative); Coronavirus 19 IgM Antibody Negative (Negative)
== END ==
PROVIDERS: Visit Provider Surgery
DX: Z01.818 Encounter for other preprocedural examination (principal); Z12.11 Encounter for screening for malignant neoplasm of colon
CPT/HCPCS: 36415; 86328

== ENCOUNTER 2020-01-30 07:24 | Day surgery (SDC) | payer MEDICARE, OTHER, SELFPAY ==
[2020-01-24 15:53] VITALS: BMI 22.6
[2020-01-30 07:46] VITALS: BP 157/90; PULSE 57; RESP 18; TEMP 36.3; O2SAT 98
--- NOTE | 2020-01-30 07:52 | P.PN_ITS ---
[facility] Anesthesia Checklist - Patient Identification Patient Identification: Arm Band, Verbal (Name & ) - Structural Data Admitted From: Home Planned Operative Procedure/s: colon Consent for Planned Operative Procedure(s) Verified: Yes Verified Documents: History and Physical - NPO Status Verified Time NPO: 00:00 - Additional verifications Patient : No Anesthesia Reactions: No Hx Blood Transfusions: Yes Blood Transfusion Reaction: No Cephalosporin Allergy: No Previous Colonoscopy: Yes - Cardiovascular Assessment Heart Sounds: S1 & S2 Pulse Strength: Baseline Pulse Rhythm: Regular - Airway Assessment C-Spine Mobility Assessed: Yes TMJ Mobility Assessed: Yes Dentition: Edentulous - Neurological Assessment Level of Consciousness: Awake, Alert, Appropriate Hx Seizures: No Numbness or tingling in extremities: No - Anesthesia Plan Anesthesia Risk discussed: Yes Anesthesia Plan: Verified ASA Class: III Anesthesia Type: MAC [facility] History I have reviewed the patient's past medical history: Yes Medical History: Reports:: Cancer (colon, skin ca), Gastroesophageal Reflux Disease(GERD), Hypertension Denies:: Diabetes Mellitus Type 1, Diabetes Mellitus Type 2, Internal Pacemaker, Lung Disease, MRSA, Seizures *Have you ever received a pneumonia vaccine?: Yes *Have you received a flu vaccine this season?: No Other Medical History: Reports: Arthritis, Chemotherapy. Denies: Blood Transfusion Reaction Anesthesia experience/problems:: none Laterality Cases: Right: Arthroscopy Shoulder Other Surgeries: Yes: Cancer Surgery, Colonoscopy, Colon Resection, EGD, Plastic Surgery, Other. No: Pacemaker Amputation: No Fractures: Yes - *Social History Last grade of school completed: Some college Smoking Status: Current every day smoker Tobacco Type: cigars # Packs/Day (cigarettes): 1 #Yrs smoked (if former smoker): 18 Alcohol Intake: current Alcohol Intake Frequency:: holidays/special occasions only Substance Use Type: denies use *Occupational Status:: disabled Housing: house Household Members: family *Travel in the last 8 weeks: None Family Hx:: Cancer, Coronary Artery Disease, Diabetes, Heart Attack, Hyperlipidemia, Hypertension, Stroke, Thyroid Disorder
[2020-01-30 08:11] VITALS: O2SAT 98
--- NOTE | 2020-01-30 08:41 | HMH.SCOPE ---
- Procedure: Date: 01/30/20 Patient Date of :: 1955 Procedure Performed:: Total colonoscopy with biopsy and polypectomy by biopsy forceps Indications:: Patient is a pleasant 64-year-old male who is well known to me. He has a history of numerous colon polyps. I had performed initial colonoscopy on him in April 2015 at which time he had numerous adenomatous polyps as well as a tubulovillous adenoma with high-grade dysplasia. Due to this he underwent follow-up colonoscopy 3 months later and had numerous tubular adenomas. Later that year in February 2016 colonoscopy revealed tubulovillous adenoma and tubular adenoma. Colonoscopy September 2016 revealed no adenomatous polyps. And therefore he underwent colonoscopy 1 year later in September 2017 at which he was found to have an interval development of adenomatous mass in the cecum. He underwent right hemicolectomy. He did have a 1 year colonoscopy which revealed no adenomatous polyps. Of note, his sister of colon cancer at age 56. Of note, the patient did undergo extensive lower extremity vascular surgery by Dr. Matias Diaz. He is on Plavix. Performing Provider:: Demetrio Amor MD Referring Provider:: Salma Herr Sedation:: MAC sedation Procedure:: Patient was taken to endoscopy procedure room. He was positioned in a lateral decubitus position. Adequate intravenous sedation was achieved with anesthesia titration of propofol. Variable stiffness Olympus colonoscope was inserted via the anus. It was advanced to the ileocolonic anastomosis at approximately 80 cm from the anal verge. Colonoscope was advanced into the ileum. There was some mucosal nodularity consistent with lymphoid hyperplasia. There were a couple of areas of more prominent mucosa in the ileum and biopsies were obtained using cold biopsy forceps. Colonoscope was withdrawn through the colon with careful surveillance. There is a tiny diminutive possible polyp in the transverse colon removed with cold biopsy forceps. There was rectosigmoid likely hyperplastic polyp removed with cold biopsy forceps. Retroflexion within the rectum revealed no evidence of any pathologic internal hemorrhoids. Colonoscope was withdrawn. Findings:: Possible polyps Prominent mucosa in the ileum Recommendations:: Given patient's prior history and family history repeat colonoscopy 1 or 2 years. Complications:: None immediately apparent Estimated blood obtained (mL): 2
[2020-01-30 08:45] VITALS: BP 81/47; PULSE 59; RESP 18; TEMP 36.3; O2SAT 96
[2020-01-30 08:55] VITALS: BP 136/84; PULSE 49; RESP 18; O2SAT 98
[2020-01-30 09:05] VITALS: BP 132/86; PULSE 52; RESP 18; O2SAT 97
[2020-01-30 09:15] VITALS: BP 128/84; PULSE 56; RESP 18; O2SAT 98
== END 2020-01-30 09:15 | disposition home or self-care (01) ==
PROVIDERS: PCP Family Medicine; Visit Provider Surgery
PROC: 0DJD8ZZ Inspection of Lower Intestinal Tract, Via Natural or Artificial Opening Endoscopic (ICD-10-PCS; principal; 2020-01-30 08:30)
DX: Z12.11 Encounter for screening for malignant neoplasm of colon (principal); K63.89 Other specified diseases of intestine; R59.0 Localized enlarged lymph nodes; Z86.010 Personal history of colon polyps; Z87.19 Personal history of other diseases of the digestive system; Z80.0 Family history of malignant neoplasm of digestive organs; Z90.49 Acquired absence of other specified parts of digestive tract
CPT/HCPCS: 45380; 88305

== ENCOUNTER → 2020-12-31 11:08 | Outpatient (CLI) | payer MEDICARE, SELFPAY ==
[2020-12-31 16:57] LABS: Prostate Specific Ag Screen 0.8 ng/ml (0.0-4.0)
== END ==
PROVIDERS: Visit Provider Urology
DX: Z12.5 Encounter for screening for malignant neoplasm of prostate (principal)
CPT/HCPCS: 36415; G0103

== ENCOUNTER → 2021-08-27 15:06 | Outpatient (CLI) | payer MEDICARE, SELFPAY | PROVIDERS: Visit Provider Surgery | DX: Z01.812 Encounter for preprocedural laboratory examination (principal); Z11.52 Encounter for screening for COVID-19; Z12.11 Encounter for screening for malignant neoplasm of colon | CPT/HCPCS: C9803; U0003; U0005 ==

== ENCOUNTER 2021-08-29 06:20 | Day surgery (SDC) | payer MEDICARE, SELFPAY ==
[2021-08-27 13:36] VITALS: BMI 25.1
[2021-08-29] VITALS (7 sets, daily range): BP systolic 86–147; BP diastolic 55–93; PULSE 50–65; RESP 16–20; TEMP 36.2–36.4; O2SAT 96–99
--- NOTE | 2021-08-29 06:26 | HMH.GSHP ---
HPI HPI: Patient is a pleasant 66-year-old male who is well known to me. He has a history of numerous colon polyps. I had performed initial colonoscopy on him in April 2015 at which time he had numerous adenomatous polyps as well as a tubulovillous adenoma with high-grade dysplasia. Due to this he underwent follow-up colonoscopy 3 months later and had numerous tubular adenomas. Later that year in February 2016 colonoscopy revealed tubulovillous adenoma and tubular adenoma. Colonoscopy September 2016 revealed no adenomatous polyps. And therefore he underwent colonoscopy 1 year later in September 2017 at which he was found to have an interval development of adenomatous mass in the cecum. He underwent right hemicolectomy. He did have a 1 year colonoscopy last year which revealed no polyps. Last colonoscopy performed on 01/30/20 to the ileum proximal to the anastomosis was essentially unremarkable other than a couple of hyperplastic polyps. There were no adenomatous polyps. Since his right hemicolectomy, he had not had any adenomatous polyps. However, given his prior history I would advocated repeating colonoscopy about 18 months after last. Patient states that for about 8 months he has had some discomfort in the epigastrium to the left subcostal area. This is intermittent. His primary care provider had ordered a CT scan which was reportedly unremarkable. [facility] History I have reviewed the patient's past medical history: Yes Medical History: Reports:: Cancer (skin), Gastroesophageal Reflux Disease(GERD), Hypertension Denies:: Diabetes Mellitus Type 1, Diabetes Mellitus Type 2, Internal Pacemaker, Lung Disease, MRSA, Seizures *Have you ever received a pneumonia vaccine?: No *Have you received a flu vaccine this season?: No Other Medical History: Reports: Arthritis, Chemotherapy. Denies: Blood Transfusion Reaction Laterality Cases: Right: Arthroscopy Shoulder Other Surgeries: Yes: No Previous Surgery, Cancer Surgery, Colonoscopy, Colon Resection, EGD, Plastic Surgery, Other. No: Pacemaker Amputation: No Fractures: Yes - *Social History Last grade of school completed: Advanced degree Smoking Status: Current every day smoker Tobacco Type: cigars # Packs/Day (cigarettes): 1 #Yrs smoked (if former smoker): 18 Alcohol Intake: current Alcohol Intake Frequency:: holidays/special occasions only Substance Use Type: denies use *Occupational Status:: disabled Housing: house Household Members: none *Travel in the last 8 weeks: None Family Hx:: Cancer, Coronary Artery Disease, Diabetes, Heart Attack, Hyperlipidemia, Hypertension, Stroke, Thyroid Disorder Review of Systems - Review of Systems Review of systems:: pertinent systems reviewed and negative unless documented below Meds Home Medications Medication Instructions Recorded Confirmed Type aspirin 81 mg tablet,delayed 81 mg PO DAILY 12/04/19 08/27/21 History release atorvastatin 20 mg tablet 20 mg PO DAILY 12/04/19 08/27/21 History clopidogrel 75 mg tablet 75 mg PO DAILY 12/04/19 08/27/21 History hydrocodone 10 mg-acetaminophen 15 ml PO Q12H PRN 01/08/20 08/27/21 History 325 mg/15 mL (15 mL) oral solution Valsartan [Valsartan 80mg 80 mg PO DAILY 08/27/21 08/27/21 History Tablets] Allergies Allergy/AdvReac Type Severity Reaction Status Date / Time codeine [CODEINE] Allergy Mild NA-NAUSEA/V Verified 08/27/21 13:42 OMITING Sulfa (Sulfonamide Allergy Mild NA-NAUSEA/V Verified 08/27/21 13:42 Antibiotics) OMITING [SULFA (SULFONAMIDE ANTIBIOTICS)] duloxetine Allergy Unknown Verified 08/27/21 13:42 gabapentin Allergy Unknown Verified 08/27/21 13:42 influenza virus vaccine qs Allergy Unknown Verified 08/27/21 13:42 [id number] (36 mos, up) [From Single Use EZ Flu] pregabalin [From Lyrica] Allergy Unknown Verified 08/27/21 13:42 Exam I & O for Last 24 hours: Intake & Output 08/26/21 08/27/21 08/28/21 08/29/21 11:59 11:59 11:59 11:59 Weigh
--- NOTE | 2021-08-29 06:59 | P.PN_ITS ---
[facility] Anesthesia Checklist - Patient Identification Patient Identification: Arm Band - Structural Data Admitted From: Home Planned Operative Procedure/s: Colonoscopy Consent for Planned Operative Procedure(s) Verified: Yes - NPO Status Verified Time NPO: 00:00 - Additional verifications Anesthesia Reactions: No Hx Blood Transfusions: Yes Blood Transfusion Reaction: No - Airway Assessment C-Spine Mobility Assessed: Yes TMJ Mobility Assessed: Yes Dentition: Edentulous - Neurological Assessment Level of Consciousness: Awake Hx Seizures: No Numbness or tingling in extremities: No - Anesthesia Plan Anesthesia Risk discussed: Yes Anesthesia Plan: Verified ASA Class: II Anesthesia Type: MAC [facility] History I have reviewed the patient's past medical history: Yes Medical History: Reports:: Cancer (skin), Gastroesophageal Reflux Disease(GERD), Hypertension Denies:: Diabetes Mellitus Type 1, Diabetes Mellitus Type 2, Internal Pacemaker, Lung Disease, MRSA, Seizures *Have you ever received a pneumonia vaccine?: No *Have you received a flu vaccine this season?: No Other Medical History: Reports: Arthritis, Chemotherapy. Denies: Blood Transfusion Reaction Anesthesia experience/problems:: None Laterality Cases: Right: Arthroscopy Shoulder Other Surgeries: Yes: No Previous Surgery, Cancer Surgery, Colonoscopy, Colon Resection, EGD, Plastic Surgery, Other. No: Pacemaker Amputation: No Fractures: Yes - *Social History Last grade of school completed: Advanced degree Smoking Status: Current every day smoker Tobacco Type: cigars # Packs/Day (cigarettes): 1 #Yrs smoked (if former smoker): 18 Alcohol Intake: current Alcohol Intake Frequency:: holidays/special occasions only Substance Use Type: denies use *Occupational Status:: disabled Housing: house Household Members: none *Travel in the last 8 weeks: None Family Hx:: Cancer, Coronary Artery Disease, Diabetes, Heart Attack, Hyperlipidemia, Hypertension, Stroke, Thyroid Disorder
--- NOTE | 2021-08-29 07:38 | P.PCN_ITS ---
- Procedure: Date: 08/29/21 Patient Date of :: 1955 Procedure Performed:: Total colonoscopy with polypectomy by snare and biopsy forceps Indications:: Patient is a pleasant 66-year-old male who is well known to me. He has a history of numerous colon polyps. I had performed initial colonoscopy on him in April 2015 at which time he had numerous adenomatous polyps as well as a tubulovillous adenoma with high-grade dysplasia. Due to this he underwent f ollow-up colonoscopy 3 months later and had numerous tubular adenomas. Later that year in February 2016 colonoscopy revealed tubulovillous adenoma and tubular adenoma. Colonoscopy September 2016 revealed no adenomatous polyps. And therefore he underwent colonoscopy 1 year later in September 2017 at which he was found to have an interval development of adenomatous mass in the cecum. He underwent right hemicolectomy. He did have a 1 year colonoscopy last year which revealed no polyps. Last colonoscopy performed on 01/30/20 to the ileum proximal to the anastomosis was essentially unremarkable other than a couple of hyperplastic polyps. There were no adenomatous polyps. Since his right hemicolectomy, he had not had any adenomatous polyps. However, given his prior history I would advocated repeating colonoscopy about 18 months after last. Patient states that for about 8 months he has had some discomfort in the epigastrium to the left subcostal area. This is intermittent. His primary care provider had ordered a CT scan which was reportedly unremarkable. Performing Provider:: Demetrio Amor MD Referring Provider:: Salma Herr Sedation:: MAC sedation Procedure:: Patient was taken to endoscopy procedure room. He was positioned in lateral decubitus position. Adequate intravenous sedation was achieved with anesthesia titration of propofol. Digital examination was performed which was unremarkable. Variable stiffness Olympus colonoscope was inserted via the anus. It was advanced to the ileocolic anastomosis without difficulty. Colonic preparation was good. There was advanced into the terminal ileum which appeared grossly normal. There was a minor area of mucosal prominence within the ileum at the anastomosis which was biopsied. Colonoscope was slowly withdrawn through the colon. There was a tiny diminutive polyp in the transverse colon which was removed with cold snare. There were a few rare sigmoid diverticuli noted. In the rectum there were several hyperplastic appearing polyps 2 of which were removed with cutting snare and 1 was removed with biopsy forceps. Retroflexion revealed no evidence of any pathologic internal hemorrhoids. Colonoscope was withdrawn. Findings:: Unremarkable overall appearance to ileocolic anastomosis Tiny diminutive transverse colon polyp Rare sigmoid diverticuli Hyperplastic appearing rectal polyps Recommendations:: Pending pathology likely repeat colonoscopy 2 years given prior history Complications:: None immediately apparent Estimated blood obtained (mL): 2
== END 2021-08-29 08:20 | disposition home or self-care (01) ==
LOC: OUTP 06:21
PROVIDERS: PCP Family Medicine; Visit Provider Surgery
PROC: 0DJD8ZZ Inspection of Lower Intestinal Tract, Via Natural or Artificial Opening Endoscopic (ICD-10-PCS; principal; 2021-08-29 07:30)
DX: Z12.11 Encounter for screening for malignant neoplasm of colon (principal); Z86.010 Personal history of colon polyps; K63.5 Polyp of colon; K57.32 Diverticulitis of large intestine without perforation or abscess without bleeding; K62.1 Rectal polyp; K21.9 Gastro-esophageal reflux disease without esophagitis; I10 Essential (primary) hypertension; M19.90 Unspecified osteoarthritis, unspecified site; Z72.0 Tobacco use; Z85.828 Personal history of other malignant neoplasm of skin; Z80.9 Family history of malignant neoplasm, unspecified; Z82.3 Family history of stroke; Z83.3 Family history of diabetes mellitus; Z82.49 Family history of ischemic heart disease and other diseases of the circulatory system; Z83.438 Family history of other disorder of lipoprotein metabolism and other lipidemia
CPT/HCPCS: 45380; 45385; 88305

== ENCOUNTER → 2022-01-06 10:15 | Outpatient (CLI) | payer MEDICARE, SELFPAY ==
[2022-01-06 12:34] LABS: Prostate Specific Ag Screen 0.7 ng/ml (0.0-4.0)
== END ==
PROVIDERS: PCP Family Medicine; Visit Provider Urology
DX: Z12.5 Encounter for screening for malignant neoplasm of prostate (principal)
CPT/HCPCS: 36415; G0103

== ENCOUNTER 2023-10-29 07:17 | Day surgery (SDC) | payer MEDICARE, SELFPAY ==
[2023-10-27 14:03] VITALS: BMI 27.3
[2023-10-29] VITALS (7 sets, daily range): BP systolic 90–171; BP diastolic 48–77; PULSE 49–57; RESP 14–18; TEMP 36.1–36.4; O2SAT 95–99
[2023-10-29] MEDS: LACTATED RINGERS 1000ML 1,000 ML 25 ML IV (07:39)
--- NOTE | 2023-10-29 08:05 | EXP.ANES.CKL ---
[facility] Disclaimer: The information contained in this section may have been updated after the patient was seen, as this information can be updated by other users. 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 BPH (benign prostatic hyperplasia) Surgical History History of dental surgery History of surgery on lower extremity Hx of foot surgery H/O rotator cuff surgery Hx of shoulder surgery History of colon resection Status post surgical removal of nail matrix of toe of right foot Previous back surgery Family History Other Bone cancer Heart attack Social History Smoking Status: Current every day smoker tobacco type: cigars alcohol intake: never counseling provided: provider counseling substance use type: denies use current occupational status: retired and disabled Travel in the last 8 weeks: None household members: none housing: house current occupational exposures/hazards: No caffeine: Yes [facility] Anesthesia Checklist Patient Identification Patient Identification: Arm Band Structural Data Admitted From: Home Planned Operative Procedure/s: Colonoscopy Consent for Planned Operative Procedure(s) Verified: Yes Verified Documents: Surgical Consent and History and Physical NPO Status Verified Time NPO: 00:00 Additional verifications Anesthesia Reactions: No Hx Blood Transfusions: Yes Blood Transfusion Reaction: No Airway Assessment Mallampati Score:: Class II C-Spine Mobility Assessed: Yes TMJ Mobility Assessed: Yes Dentition: Good Dentition Neurological Assessment Level of Consciousness: Awake, Alert and Appropriate Anesthesia Plan Anesthesia Risk discussed: Yes Anesthesia Plan: Verified ASA Class: III Anesthesia Type: MAC
--- NOTE | 2023-10-29 08:57 | HMH.SCOPE ---
Procedure: Date: 10/29/23 Patient Date of :: 1955 Procedure Performed:: Total colonoscopy to ileocolic anastomosis with polypectomy using snare and biopsy forceps . Indications:: Patient is a 68 year old male who is well known to me. He has had multiple colonoscopies in the past. I had performed initial colonoscopy on him in April 2015 at which time he had numerous adenomatous polyps as well as a tubulovillous adenoma with high-grade dysplasia.? Due to this he underwent follow-up colonoscopy 3 months later and had numerous tubular adenomas.? Later that year in February 2016 colonoscopy revealed tubulovillous adenoma and tubular adenoma.? Colonoscopy September 2016 revealed no adenomatous polyps.? And therefore he underwent colonoscopy 1 year later in September 2017 at which he was found to have an interval development of adenomatous mass in the cecum.? He underwent right hemicolectomy for this adenomatous mass on 11/24/17. Subsequent colonoscopies have been performed on 11/08/18, 01/30/20, and 08/29/21 have revealed some hyperplastic polyps but no adenomatous polyps. . Performing Provider:: Demetrio Amor MD Referring Provider:: Salma Herr . Sedation:: MAC sedation . Procedure:: Patient history was obtained and appropriate physical examination was performed. Patient's medications and allergies were reviewed. Informed consent was obtained after explaining the benefits, alternatives, and risks of the procedure including, but not limited to, bleeding, perforation, missed lesions, and adverse reaction to anesthesia medications. Patient was transported to endoscopy procedure room. Patient was connected to monitoring devices. Throughout the procedure the patient's blood pressure, pulse, and oxygen saturations were monitored continuously. Patient identification and planned procedure were verified by the staff. Patient was positioned in lateral decubitus position. Digital anorectal exam was performed. Variable stiffness Olympus colonoscope was inserted and advanced under direct visualization to the ileocolic anastomosis. Adequacy of the colonic preparation was noted. The colonoscope was advanced a short distance into the terminal ileum. The colonoscope was then slowly withdrawn while carefully examining the color, texture, anatomy, and integrity of the mucosoa circumferentially. Within the rectum retroflexion was performed. Colonoscope was then withdrawn. IMPRESSION: Colonoscope was advanced to the ileocolic anastomosis. Colonic preparation was fair. There was particulate opaque stool throughout the colon. With very high volume transcolonoscopic irrigation and suctioning this was able to be mostly cleared. There was a small adenomatous polyp in the transverse colon just distal to the ileocolic anaastomosis removed with cold snare. It was difficult to retrieve polypectomy specimen due to the large amount of liquid and stool in the colon. Ultimately what appeared to be possible polyp was retrieved and sent for specimen. As the colonoscope was withdrawn large volume irrigation and suctioning was carried out. There was significant amount of particulate opaque stool. There were a few diverticuli in the sigmoid colon. In the rectosigmoid area there were several hyperplastic appearing polyps. A couple of these were removed with biopsy forceps. . Findings:: Fair preparation. Small likely adenomatous polyp in transverse colon just past ileocolic anastomosi Several sigmoid diverticuli Hyperplastic appearing rectosigmoid polyps. . Recommendations:: Due to suboptimal prep, patient history, and development of polyps likely repeat colonoscopy in one year with maximum multi-day prep. Complications:: None immediately apparent. Estimated blood obtained (mL): 1 Colonoscopy Component Colonoscopy Component Was a colonoscopy performed during today's procedure?: Yes Recommended follow up colonoscopy of at least 10 years?: No If no, follow up colonoscopy recommended in ___ years?: 1 Reason for not recommending >/= 10 yr follow-up interval?: See above
--- NOTE | 2023-10-29 09:50 | P.PNANES_ITS ---
[facility] Anesthesia Record Part I Anesthesia Record I Intake, IV Amount: 500 Hydration: Adequate Estimated blood loss (mL): 1 Urine output (mL): 0 Blood Products used (#): none Blood Pressure: 90/53 SaO2: 95 Pulse Rate: 55 Airway Patency: Patent Respiratory Rate: 16 Temperature: 97.6 F Patient is:: Drowsy and Stable Stable to PACU at:: 09:55
== END 2023-10-29 10:22 | disposition home or self-care (01) ==
PROVIDERS: PCP Family Medicine; Visit Provider Surgery
PROC: 0DJD8ZZ Inspection of Lower Intestinal Tract, Via Natural or Artificial Opening Endoscopic (ICD-10-PCS; CPT 45385; principal; 2023-10-29 08:30)
DX: Z09 Encounter for follow-up examination after completed treatment for conditions other than malignant neoplasm (principal); Z12.11 Encounter for screening for malignant neoplasm of colon; Z86.010 Personal history of colon polyps; D12.7 Benign neoplasm of rectosigmoid junction; D12.3 Benign neoplasm of transverse colon; K57.30 Diverticulosis of large intestine without perforation or abscess without bleeding
CPT/HCPCS: 45385; J7120

== ENCOUNTER 2024-11-03 07:22 | Day surgery (SDC) | payer MEDICARE, SELFPAY ==
[2024-10-31 14:59] VITALS: BMI 25.7
--- NOTE | 2024-11-03 06:19 | EXP.GEN.HP ---
HPI HPI HPI: Patient is a 68 year old male who is well known to me. He has had multiple colonoscopies in the past. I had performed initial colonoscopy on him in April 2015 at which time he had numerous adenomatous polyps as well as a tubulovillous adenoma with high-grade dysplasia.? Due to this he underwent follow-up colonoscopy 3 months later and had numerous tubular adenomas.? Later that year in February 2016 colonoscopy revealed tubulovillous adenoma and tubular adenoma.? Colonoscopy September 2016 revealed no adenomatous polyps.? And therefore he underwent colonoscopy 1 year later in September 2017 at which he was found to have an interval development of adenomatous mass in the cecum.? He underwent right hemicolectomy for this adenomatous mass on 11/24/17. Subsequent colonoscopies have been performed on 11/08/18, 01/30/20, and 08/29/21 have revealed some hyperplastic polyps but no adenomatous polyps. Colonoscopy done on 10/29/2023 revealed suboptimal preparation. With a tubular adenoma in the transverse colon just past the anastomosis and sessile serrated lesion x 2 at the rectosigmoid which appeared to be consistent with hyperplastic polyps. Given this plan was made for repeat colonoscopy 1 year. [facility] Disclaimer: The information contained in this section may have been updated after the patient was seen, as this information can be updated by other users. 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 BPH (benign prostatic hyperplasia) Surgical History History of dental surgery History of surgery on lower extremity Hx of foot surgery H/O rotator cuff surgery Hx of shoulder surgery History of colon resection Status post surgical removal of nail matrix of toe of right foot Previous back surgery Family History Other Bone cancer Heart attack Social History Smoking Status: Current every day smoker tobacco type: cigars alcohol intake: never counseling provided: provider counseling substance use type: denies use current occupational status: retired and disabled Travel in the last 8 weeks?: None household members: none housing: house current occupational exposures/hazards: No caffeine: Yes Have you lived/traveled outside [place] in past 30 days?: No Contact w/someone who lives/traveled outside [place] past 30 days?: No Exposure to someone with infectious disease in past 14 days?: No Do you have a fever (greater than 100.4 F or 38 C)?: No Have you tested positive for COVID-19?: No Exposed to someone with COVID-19 in past 14 days?: No Do you have a sore throat?: No Do you have a cough?: No Do you have any weakness?: No Do you have any diarrhea?: No Are you experiencing any unusual bleeding?: No Do you have any muscle aches/pain?: No Do you have any abdominal pain?: No Are you experiencing loss of taste or smell?: No Other Medical History Have you received the Flu Vaccine for this season: No Have you received the Pneumonia Vaccine: Yes Meds Home Medications and Allergies Home Medications ?Medication ?Instructions ?Recorded ?Confirmed ?Type atorvastatin 20 mg tablet (Lipitor) 20 mg PO DAILY Cholesterol 12/04/19 10/31/24 History clopidogrel 75 mg tablet (Plavix) 75 mg PO DAILY Blood thinner 12/04/19 10/31/24 History valsartan 80 mg tablet 80 mg PO DAILY High blood pressure 08/27/21 10/31/24 History hydrocodone 10 mg-acetaminophen 1 tab PO Q8 PRN Pain 10/27/23 10/31/24 History 325 mg tablet New Prescriptions to Start Prescriptions: Allergies Allergy/AdvReac Type Severity Reaction Status Date / Time codeine (CODEINE) Allergy Mild NA-NAUSEA/V Verified 11/03/24 07:42 OMITING Sulfa (Sulfonamide Allergy Mild NA-NAUSEA/V Verified 11/03/24 07:42 Antibiotics) (SULFA OMITING (SULFONAMIDE ANTIBIOTICS)) duloxetine Allergy Unknown Vomiting Verified 11/03/24 07:42 gabapentin Allergy Unknown Vomiting Verified 11/03/24 07:42 influenza virus vaccine qs Allergy Unknown Hives Verified 11/03/24 07:42 [id number] (36 mos, up) (From Single Use EZ Flu) pregabalin (From Lyrica) Allergy Unknown Vomiting Verified 11/03/24 07:42 Exam Data for Last 24 hours I & O for Last 24 hours: Intake & Output 0711/01/24 11/02/24 11/03/24 11:59 11:59 11:59 11:59 Weight 184 lb Constitutional Constitutional: no acute distress *Routine HEENT Exam Head: Present normocephalic Eye: Present EOMI and PERRL ENT: Present mucous membranes moist *Routine Neck Exam Neck: Present supple; Absent lymphadenopathy *Routine Respiratory Exam Respiratory: Present CTA bilaterally *Routine Cardiovascular Exam Cardiovascular: Present RRR *Routine Abdominal Exam Abdominal: Present soft and normoactive bowel sounds; Absent tenderness *Routine Rectal Exam Rectal:: deferred *Routine Genitalia Exam Genitalia:: deferred *Routine Extremities Exam Extremities: Absent cyanosis, clubbing or edema *Routine Skin Exam Skin: Present warm; Absent rash *Routine Neurological Exam Neurological: Present alert and oriented X3 Assessment and Plan *Assessment and plan (1) Colon polyps: Status: Acute Category: Medical Code(s): K63.5 - Polyp of colon Plan Repeat colonoscopy
[2024-11-03 07:43] VITALS: BP 124/71; PULSE 50; RESP 18; TEMP 36.4; O2SAT 99
--- NOTE | 2024-11-03 08:07 | P.PCN_ITS ---
Procedure: Date: 11/03/24 Patient Date of :: 1955 Procedure Performed:: Total colonoscopy to the ileocecal and asked with polypectomy Indications:: Patient is a 68 year old male who is well known to me. He has had multiple colonoscopies in the past. I had performed initial colonoscopy on him in April 2015 at which time he had numerous adenomatous polyps as well as a tubulovillous adenoma with high-grade dysplasia.? Due to this he underwent follow-up colonoscopy 3 months later and had numerous tubular adenomas.? Later that year in February 2016 colonoscopy revealed tubulovillous adenoma and tub ular adenoma.? Colonoscopy September 2016 revealed no adenomatous polyps.? And therefore he underwent colonoscopy 1 year later in September 2017 at which he was found to have an interval development of adenomatous mass in the cecum.? He underwent right hemicolectomy for this adenomatous mass on 11/24/17. Subsequent colonoscopies have been performed on 11/08/18, 01/30/20, and 08/29/21 have revealed some hyperplastic polyps but no adenomatous polyps. Colonoscopy done on 10/29/2023 revealed suboptimal preparation. With a tubular adenoma in the transverse colon just past the anastomosis and sessile serrated lesion x 2 at the rectosigmoid which appeared to be consistent with hyperplastic polyps. Given this plan was made for repeat colonoscopy 1 year. . Performing Provider:: Demetrio Amor MD Referring Provider:: Salma Herr DO Sedation:: MAC sedation Procedure:: Patient history was obtained and appropriate physical examination was performed. Patient's medications and allergies were reviewed. Informed consent was obtained after explaining the benefits, alternatives, and risks of the procedure including, but not limited to, bleeding, perforation, missed lesions, and adverse reaction to anesthesia medications. Patient was transported to endoscopy procedure room. Patient was connected to monitoring devices. Throughout the procedure the patient's blood pressure, pulse, and oxygen saturations were monitored continuously. Patient identification and planned procedure were verified by the staff. Patient was positioned in lateral decubitus position. Digital anorectal exam was performed. Variable stiffness Olympus colonoscope was inserted and advanced under direct visualization. Adequacy of the colonic preparation was noted. The colonoscope was advanced a short distance into the terminal ileum. The colonoscope was then slowly withdrawn while carefully examining the color, texture, anatomy, and integrity of the mucosoa circumferentially. Within the rectum retroflexion was performed. Colonoscope was then withdrawn. Impression: In the descending colon there were a couple possibly fairly diminutive adenomatous polyps removed with cold biopsy forceps. In the sigmoid: Distally near the rectosigmoid region there were several likely hyperplastic polyps. 2 of these were removed with biopsy forceps and 1 of these removed with cold snare. There was some moderate sigmoid diverticulosis. He had some minor internal prolapsing hemorrhoids. . Findings:: Anastomosis intact without any evidence of adenomatous recurrence A couple of subtle descending possible polyps Sigmoid diverticulosis Hyperplastic appearing rectosigmoid polyps Some internal hemorrhoids. . Recommendations:: Follow-up colonoscopy pending pathology Complications:: None immediately apparent Estimated blood obtained (mL): 1 Colonoscopy Component Colonoscopy Component Was a colonoscopy performed during today's procedure?: Yes Recommended follow up colonoscopy of at least 10 years?: No If no, follow up colonoscopy recommended in ___ years?: See above Reason for not recommending >/= 10 yr follow-up interval?: See above
[2024-11-03 08:37] VITALS: BP 90/50; PULSE 51; RESP 16; TEMP 36.1; O2SAT 95
--- NOTE | 2024-11-03 08:41 | EXP.ANES.CKL ---
[facility] Disclaimer: The information contained in this section may have been updated after the patient was seen, as this information can be updated by other users. 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 BPH (benign prostatic hyperplasia) Surgical History History of dental surgery History of surgery on lower extremity Hx of foot surgery H/O rotator cuff surgery Hx of shoulder surgery History of colon resection Status post surgical removal of nail matrix of toe of right foot Previous back surgery Family History Other Bone cancer Heart attack Social History Smoking Status: Current every day smoker tobacco type: cigars alcohol intake: never counseling provided: provider counseling substance use type: denies use current occupational status: retired and disabled Travel in the last 8 weeks?: None household members: none housing: house current occupational exposures/hazards: No caffeine: Yes Have you lived/traveled outside [place] in past 30 days?: No Contact w/someone who lives/traveled outside [place] past 30 days?: No Exposure to someone with infectious disease in past 14 days?: No Do you have a fever (greater than 100.4 F or 38 C)?: No Have you tested positive for COVID-19?: No Exposed to someone with COVID-19 in past 14 days?: No Do you have a sore throat?: No Do you have a cough?: No Do you have any weakness?: No Do you have any diarrhea?: No Are you experiencing any unusual bleeding?: No Do you have any muscle aches/pain?: No Do you have any abdominal pain?: No Are you experiencing loss of taste or smell?: No [facility] Anesthesia Checklist Patient Identification Patient Identification: Verbal (Name & ) Structural Data Admitted From: Home Planned Operative Procedure/s: colonoscopy Consent for Planned Operative Procedure(s) Verified: Yes Additional verifications Anesthesia Reactions: No Hx Blood Transfusions: Yes Blood Transfusion Reaction: No Airway Assessment Mallampati Score:: Class II C-Spine Mobility Assessed: Yes TMJ Mobility Assessed: Yes Dentition: Edentulous Neurological Assessment Level of Consciousness: Awake, Alert and Appropriate Anesthesia Plan Anesthesia Risk discussed: Yes Anesthesia Plan: Verified ASA Class: III Anesthesia Type: MAC
[2024-11-03 08:47] VITALS: BP 105/61; PULSE 49; RESP 17; TEMP 36.1; O2SAT 96
[2024-11-03 08:57] VITALS: BP 114/45; PULSE 47; RESP 18; TEMP 36.1; O2SAT 97
[2024-11-03 09:07] VITALS: BP 122/70; PULSE 50; RESP 18; TEMP 36.1; O2SAT 98
== END 2024-11-03 09:17 | disposition home or self-care (01) ==
PROVIDERS: PCP Family Medicine; Visit Provider Surgery
PROC: 0DJD8ZZ Inspection of Lower Intestinal Tract, Via Natural or Artificial Opening Endoscopic (ICD-10-PCS; CPT 45380; principal; 2024-11-03 08:30)
DX: K63.5 Polyp of colon (principal); K57.30 Diverticulosis of large intestine without perforation or abscess without bleeding; F17.290 Nicotine dependence, other tobacco product, uncomplicated; K64.8 Other hemorrhoids; Z86.0101 Personal history of adenomatous and serrated colon polyps; Z90.49 Acquired absence of other specified parts of digestive tract; Z86.0102 Personal history of hyperplastic colon polyps; Z88.2 Allergy status to sulfonamides; Z88.8 Allergy status to other drugs, medicaments and biological substances; Z88.5 Allergy status to narcotic agent; Z88.7 Allergy status to serum and vaccine; Z79.02 Long term (current) use of antithrombotics/antiplatelets; Z79.899 Other long term (current) drug therapy; Z71.6 Tobacco abuse counseling
CPT/HCPCS: 45380; 45385; J2003; J2704